=== PATIENT | female | born 1990 | race Caucasian/White ===

== ENCOUNTER → 2023-10-12 10:30 | Outpatient (CLI) | payer OTHER, SELFPAY ==
--- NOTE | 2023-10-12 10:35 | DI.MRI.S_ITS ---
BREAST MRI OF BOTH BREASTS: 10/12/2023 CLINICAL: Additional evaluation requested from prior study. PROCEDURE: MR BREAST BI WO/W CON INDICATIONS: PAIN IN AXILLA TECHNIQUE: The patient was placed prone in a dedicated breast imaging coil. Precontrast axial STIR and 3D FLASH without fat saturation sequences were obtained. Both before and after bolus injection of contrast, sequential 1-minute axial 3D FLASH with fat saturation sequences for 3 time points, with subtraction images and maximum intensity projections (MIP's) generated. Delayed sagittal FLASH images with fat saturation were also obtained. Computer-aided detection, including computer algorithm analysis of MRI image data for lesion detection and characterization, pharmacokinetic analysis, with further physician review for interpretation, was performed. COMPARISON: Diagnostic mammogram 07/21/2023, bilateral axillary ultrasound 07/21/2023. FINDINGS: Image quality: Diagnostic. There is extreme amount of fibroglandular tissue. There is mild and symmetric background parenchymal enhancement. Right breast: No suspicious enhancement or lymphadenopathy. Left breast: In the left breast upper inner quadrant at middle depth, there is linear non mass enhancement measuring 7 mm(axial series 13, image 99). Kinetic analysis of this finding demonstrates type 1 persistent enhancement. No suspicious lymphadenopathy. IMPRESSION: PROBABLY BENIGN Left breast 7 mm linear non-mass enhancement in the upper inner quadrant at middle depth with reassuring kinetics. Finding is probably benign. Recommend follow-up MRI in 6 months to demonstrate stability. No MRI evidence of malignancy in the right breast. No suspicious lymphadenopathy bilaterally. Electronically Signed By: Sherry Lowry M.D., PH.D eb/:10/12/2023 17:13:47 letter sent: Followup Recommended ACR BI-RADS Category 3: Probably benign [id number]
== END ==
LOC: MRI 10:34
PROVIDERS: Referring Provider Nurse Practitioner; Visit Provider Nurse Practitioner
DX: N64.4 Mastodynia (principal); M79.629 Pain in unspecified upper arm; R92.8 Other abnormal and inconclusive findings on diagnostic imaging of breast
CPT/HCPCS: 77049; A9579